=== PATIENT | male | born 1995 | race Hispanic/Latino ===

== ENCOUNTER 2021-06-24 23:00 | Observation (INO) | payer OTHER, BC ==
[~2021-06-24] VITALS: Ht 182.9 cm; Wt 105.6 kg
[2021-06-24] MEDS ORDERED: ONDANSETRON 4MG INJ ONE (23:11)
[2021-06-24] MEDS ORDERED: MORPHINE 2 MG SYG ONE (23:11)
[2021-06-24] MEDS ORDERED: CEFAZOLIN SODIUM 1 GM VIAL ONE (23:16)
[2021-06-24] MEDS ORDERED: IOHEXOL 350 MG/ML 100ML INFUS..BTL IV ONE (23:17)
[2021-06-24] MEDS ORDERED: TETANUS/DIPHTHERIA TOXOID [ADULT] 0.5 ML VIAL IM ONE ×2 (23:17→23:30)
[2021-06-24] MEDS ORDERED: 0.9%NACL 1000ML 1,000 ML IV SCH (23:30)
[2021-06-24] MEDS ORDERED: CEFAZOLIN SODIUM 1 GM VIAL IVP ONE (23:30)
[2021-06-24 23:39] LABS: BASOPHILS % (AUTO) 0.4 % (0.0-5.0); EOSINOPHILS % (AUTO) 0.8 % (0.0-8.0); HEMATOCRIT 42.3 % (42-54); LYMPHOCYTES % (AUTO) 35.9 % (21.0-51.0); MEAN CORPUSCULAR HEMOGLOBIN 30.7 pg (27.0-33.0); MEAN CORPUSCULAR HGB CONC 34.5 g/dL (32.0-36.0); MEAN CORPUSCULAR VOLUME 89.1 fL (79-99); MONOCYTES % (AUTO) 6.6 % (3.0-13.0); NEUTROPHILS % (AUTO) 55.8 % (40.0-77.0); PLATELET COUNT (AUTO) 310 K/uL (130-400); RED BLOOD CELL COUNT(AUTO) 4.75 MIL/uL (4.50-6.20)
[2021-06-24 23:49] LABS: INR 1.06 (0.85-1.15); PROTHROMBIN TIME 11.5 SEC (9.6-11.6)
[2021-06-24 23:50] LABS: CREATININE 1.2 mg/dL (0.5-1.5); PARTIAL THROMBOPLASTIN TIME 21.2 SEC (26.3-35.5); POTASSIUM 3.6 mmol/L (3.5-5.1)
[2021-06-24 23:55] LABS: BILIRUBIN,TOTAL 0.6 mg/dL (0.2-1.0); TOTAL PROTEIN, SERUM 7.3 g/dL (6.0-8.3)
[2021-06-25 00:10] LABS: APPEARANCE,URINE Clear (CLEAR); BILIRUBIN,URINE Negative (NEGATIVE); COLOR,URINE Yellow (YELLOW); GLUCOSE, URINE (UA) Negative (NEGATIVE); KETONES,URINE Negative (NEGATIVE); LEUKOCYTE ESTERASE ,URINE Negative (NEGATIVE); NITRATE,URINE Negative (NEGATIVE); OCCULT BLOOD,URINE Nonhemolyzed Trace (NEGATIVE); PH,URINE 7.5 (5.0-8.0); PROTEIN,URINE POS 1+ mg/dL (NEGATIVE); UROBILINOGEN,URINE 0.2 mg/dL (0.2-1.0)
[2021-06-25 00:16] LABS: BACTERIA,URINE None Seen /HPF (None Seen); RBC,URINE None Seen /HPF (0-1); WBC,URINE None Seen /HPF (0-1)
[2021-06-25 00:21] LABS: AMPHET/METH SCREEN,URINE NEGATIVE (NEGATIVE); BARBITURATE SCREEN, URINE NEGATIVE (NEGATIVE); BENZODIAZEPINES SCREEN,URINE NEGATIVE (NEGATIVE); CANNABINOID SCREEN,URINE NEGATIVE (NEGATIVE); COCAINE SCREEN,URINE NEGATIVE (NEGATIVE); OPIATE SCREEN,URINE POSITIVE (NEGATIVE); PHENCYCLIDINE SCREEN,URINE NEGATIVE (NEGATIVE)
[2021-06-25] MEDS ORDERED: MORPHINE 4 MG SYG ONE ×2 (00:57→03:06)
[2021-06-25] MEDS ORDERED: ONDANSETRON 4MG INJ ONE (02:06)
[2021-06-25] MEDS ORDERED: ONDANSETRON 4MG INJ IVP ONE (02:30)
[2021-06-25] MEDS: 0.9%NACL 1000ML 1,000 ML IV SCH ×2 (05:09→15:24)
[2021-06-25] MEDS: MORPHINE 2 MG SYG IVP PRN ×4 (09:58→23:48)
[2021-06-25] MEDS: BACITRACIN 28.4 GM OINT TP SCH (18:11)
[2021-06-25 20:20] VITALS: BP 144/84
[2021-06-26] VITALS: BP 152/79
[2021-06-26] MEDS: BACITRACIN 28.4 GM OINT TP SCH ×3 (00:18→17:00)
[2021-06-26] MEDS: 0.9%NACL 1000ML 1,000 ML IV SCH ×3 (01:00→21:00)
[2021-06-26] MEDS ORDERED: ACETAMINOPHEN WITH CODEINE 1 TAB TAB ONE ×2 (01:51)
[2021-06-26] MEDS ORDERED: ACETAMINOPHEN WITH CODEINE 1 TAB TAB PO PRN (02:00)
[2021-06-26 04:00] VITALS: BP 158/87
[2021-06-26] MEDS: MORPHINE 2 MG SYG IVP PRN ×3 (06:28→23:52)
[2021-06-26 08:00] VITALS: BP 146/82
[2021-06-26] MEDS: ACETAMINOPHEN WITH CODEINE 1 TAB TAB PO PRN ×2 (10:18→20:33)
[2021-06-26 12:00] VITALS: BP 160/66
[2021-06-26 16:00] VITALS: BP 169/72
[2021-06-26 21:22] VITALS: BP 153/82
[2021-06-27 00:15] VITALS: BP 141/63
[2021-06-27] MEDS: BACITRACIN 28.4 GM OINT TP SCH ×2 (01:00→15:34)
[2021-06-27 04:18] VITALS: BP 142/71
[2021-06-27 08:56] VITALS: BP 159/83
== END 2021-06-27 16:45 | disposition home or self-care (01) ==
LOC: EDH 23:00 → EDHIP 06-25 04:36 → 3BH 06-25 20:30
PROVIDERS: ADMIT Surgery; ATTEND Surgery
DX: S20.311A Abrasion of right front wall of thorax, initial encounter (principal); S30.811A Abrasion of abdominal wall, initial encounter; I45.10 Unspecified right bundle-branch block; V28.9XXA Unspecified motorcycle rider injured in noncollision transport accident in traffic accident, initial encounter; Y93.89 Activity, other specified; Y92.410 Unspecified street and highway as the place of occurrence of the external cause; Z23 Encounter for immunization
CPT/HCPCS: 36415; 70450; 71260; 72125; 73030; 73070 ×2; 73120 ×2; 73562; 74177; 80053; 80305; 81001; 82948; 84484; 85025; 85610; 85730; 90471; 90714; 93005; 96361 ×3; 96374; 96376 ×2; 99291; G0378 ×60; J0690; J2270 ×2; J2405 ×2; J7030 ×2; Q9967